=== PATIENT | female | born 1960 | race Caucasian/White ===

== ENCOUNTER 2022-12-17 08:50 | Day surgery (SDC) | payer BC ==
[2022-12-16 10:06] VITALS: BMI 34.2
[2022-12-17] MEDS ORDERED: PROPOFOL 20 ML ONE ×2 (09:04→10:49)
[2022-12-17] MEDS ORDERED: MIDAZOLAM HCL 2 MG/2 ML SINGLE DOSE VIAL ONE (09:04)
[2022-12-17] MEDS ORDERED: ROPIVACAINE HCL 0.5% 30ML VIAL ONE (09:09)
[2022-12-17] MEDS ORDERED: LIDOCAINE 1% P/F 10 MG/ML VIAL ONE (09:10)
[2022-12-17] MEDS ORDERED: oxyCODONE HCL 5 MG TABLET PO PRN ×2 (09:35)
[2022-12-17] MEDS ORDERED: ONDANSETRON 4 MG/2 ML VIAL IVPUSH PRN (09:35)
[2022-12-17] MEDS ORDERED: LACTATED RINGERS SOLUTION 1,000 ML IV SCH (09:45)
[2022-12-17] MEDS ORDERED: ceFAZolin SODIUM 1 GM VIAL ONE (10:13)
[2022-12-17 11:42] VITALS: TEMP 97.7
[2022-12-17 12:18] VITALS: RESP 18
[2022-12-17 12:34] VITALS: BP 132/85; PULSE 62
== END 2022-12-17 13:00 | disposition home or self-care (01) ==
LOC: FASU 08:50
PROVIDERS: ATTEND Orthopaedic Surgery Hand Surgery
PROC: 0LN60ZZ Release Left Lower Arm and Wrist Tendon, Open Approach (ICD-10-PCS; 2022-12-17)
PROC: 0PSJ04Z Reposition Left Radius with Internal Fixation Device, Open Approach (ICD-10-PCS; principal; 2022-12-17 10:21)
DX: S52.572A Other intraarticular fracture of lower end of left radius, initial encounter for closed fracture (principal); X58.XXXA Exposure to other specified factors, initial encounter; Y93.9 Activity, unspecified; Y92.9 Unspecified place or not applicable; Y99.9 Unspecified external cause status
CPT/HCPCS: 25290; 25609; C1713; 73110-TC-LT-FY; 94760